=== PATIENT | female | born 1955 | race Caucasian/White ===

== ENCOUNTER 2023-08-05 06:01 | Day surgery (SDC) | payer MEDICARE ==
[2023-08-05 06:39] VITALS: RESP 18
[2023-08-05] MEDS: Lactated Ringers 1,000 ML IV SCH (06:43)
[2023-08-05] MEDS ORDERED: Versed 2 MG/2 ML Injection ONE (07:56)
[2023-08-05] MEDS ORDERED: DIPRIVAN 200 MG/20 ML IV ONE (07:56)
[2023-08-05 08:37] VITALS: BP 132/86; PULSE 64; TEMP 97.2; O2SAT 99
--- NOTE | 2023-08-05 14:13 | OP ---
SURGERY DATE/TIME: 08/05/2023 3589 PREOPERATIVE DIAGNOSIS: Screening exam. POSTOPERATIVE DIAGNOSIS: Moderate to severe sigmoid diverticulosis otherwise no mucosal lesions were encountered. PROCEDURE: Colonoscopy. SURGEON: Dr. Camejo. ANESTHESIA: Medications given by anesthesia department. HISTORY: The patient is a 68-year-old white female presenting for screening colonoscopy. She reports she has had no problems in the past. The patient was described the risks of the procedure including the risk of perforation, phlebitis, untoward reaction to medication, bleeding and missed lesions. The patient verbalized her understanding and desired to have the procedure performed. DESCRIPTION OF PROCEDURE: The patient was given the medications by the anesthesia department. She had continuous pulse oximetry, ECG monitoring and intermittent blood pressure monitoring during the examination. She was placed in the left lateral decubitus position. A digital rectal examination was performed and revealed normal anal sphincter tone and no masses. The flexible Olympus pediatric colonoscope was used to intubate the rectum. A view of the colon was developed sequentially to the cecum. Upon insertion and withdrawal, including a retroflex view in the rectum, was noted to be moderate to severe sigmoid diverticulosis otherwise no other mucosal lesions were encountered. The scope was removed. The patient tolerated the procedure well and sent back to OP recovery in good condition. The prep was noted to be fair to good.
== END 2023-08-05 08:35 | disposition home or self-care (01) ==
LOC: SDC 06:01
PROVIDERS: ATTEND Family Medicine
DX: Z12.11 Encounter for screening for malignant neoplasm of colon (principal); K57.30 Diverticulosis of large intestine without perforation or abscess without bleeding
CPT/HCPCS: 93005; G0121; J2250; J2704